=== PATIENT | male | born 1990 | race Caucasian/White ===

== ENCOUNTER 2018-04-05 21:44 | Emergency (ER) | payer OTHER ==
[2018-04-05] MEDS ORDERED: LET GEL TOPICAL 1 EA SYR TP ONE (22:24)
--- NOTE | 2018-04-05 22:28 | EDPHY ---
H & P Time Seen by Provider: 04/05/18 22:24 HPI/ROS: CHIEF COMPLAINT: Right hand pain HISTORY OF PRESENT ILLNESS: The patient is a 27-year-old [employer] here for right hand pain and skin lesions after he abraded his hands tackling somebody. Denies any numbness or loss of range of motion. He takes no blood thinners or other prescribed medications. There are no drugs or alcohol involved. REVIEW OF SYSTEMS: Constitutional: No fever, no chills. Eyes: No discharge. ENT: No sore throat. Cardiovascular: No chest pain, no palpitations. Respiratory: No cough, no shortness of breath. Gastrointestinal: No abdominal pain, no vomiting. Genitourinary: No hematuria. Musculoskeletal: No back pain. Skin: No rashes. + skin lesions Neurological: No headache. Smoking Status: Never smoked Physical Exam: General Appearance: Alert and no distress. Eyes: Pupils equal and round no injection. Respiratory: Chest is nontender, lungs are clear to auscultation. Cardiac: regular rate and rhythm. Gastrointestinal: Abdomen is soft and nontender, no masses, bowel sounds normal. Musculoskeletal: Full range of motion of the right hand without deformity. Multiple skin abrasions to the dorsum of the hand Extremities have full range of motion and are nontender. Skin: Multiple superficial abrasions to the dorsum of the right hand. No foreign bodies. Constitutional: Initial Vital Signs Temperature (C) 36.7 C 04/05/18 21:51 Heart Rate 97 04/05/18 21:51 Respiratory Rate 18 04/05/18 21:51 Blood Pressure 129/91 H 04/05/18 21:51 O2 Sat (%) 95 04/05/18 21:51 O2 Delivery Mode Room Air Allergies/Adverse Reactions: No Known Allergies Allergy (Unverified 07/21/16 20:29) Home Medications: Medication Instructions Recorded NK [No Known Home Meds] 07/21/16 Medical Decision Making - Diagnostics Imaging Results: Imaging Impressions Hand X-Ray 04/05/18 21:54 Impression: No acute osseous findings. ED Course/Re-evaluation: X-ray shows no acute fracture dislocation. Let was applied to the wounds and thoroughly irrigated explored. There were no retained foreign bodies. Patient was stressed with topical antibiotic ointment and nonstick dressing. Differential Diagnosis: Fracture, dislocation, neurovascular injury, foreign body - Data Points Medications Given: Discontinued Medications Tetracaine/Epinephrine/Lidocaine (Let Gel Topical) 1 ea TP EDNOW ONE Stop: 04/05/18 22:25 Last Admin: 04/05/18 22:30 Dose: 1 ea Departure - Departure Disposition: Home, Routine, Self-Care Clinical Impression: Hand abrasion Condition: Good Instructions: Abrasion (ED) Referrals: NONE *PRIMARY CARE P,. [Primary Care Provider] - As per Instructions
[2018-04-05 23:04] VITALS: BP 127/86
== END 2018-04-05 23:04 | disposition home or self-care (01) ==
DX: S60.511A Abrasion of right hand, initial encounter (principal); W51.XXXA Accidental striking against or bumped into by another person, initial encounter; Y99.1 Military activity

== ENCOUNTER 2018-09-14 22:15 | Emergency (ER) | payer OTHER ==
[2018-09-14 22:36] VITALS: BP 161/88
--- NOTE | 2018-09-14 22:52 | EDPHY ---
H & P Stated Complaint: Possible chemical exposure Time Seen by Provider: 09/14/18 22:22 HPI/ROS: CHIEF COMPLAINT: Chemical exposure HISTORY OF PRESENT ILLNESS: 28-year-old [employer] presents after a chemical exposure. He walked in to a suspected meth house, and smelled a strong chemical odor. He developed transient dizziness and a burning sensation in his throat. He walked out of the house and the symptoms resolved. He is currently asymptomatic. REVIEW OF SYSTEMS: complete 10 point ROS reviewed and is negative except for the noted elements in the HPI - Personal History Current Tetanus/Diphtheria Vaccine: Yes Current Tetanus Diphtheria and Acellular Pertussis (TDAP): Yes - Medical/Surgical History Hx Asthma: No Hx Chronic Respiratory Disease: No Hx Diabetes: No Hx Cardiac Disease: No Hx Renal Disease: No Hx Cirrhosis: No Hx Alcoholism: No Hx HIV/AIDS: No Hx Splenectomy or Spleen Trauma: No Other PMH: denies - Social History Smoking Status: Never smoked - Physical Exam Exam: General Appearance: Alert, pleasant Eyes: Pupils equal and round, no conjunctival pallor ENT, Mouth: Mucous membranes moist Neck: Normal inspection Respiratory: Lungs are clear to auscultation, no wheezing Cardiovascular: Regular rate and rhythm Gastrointestinal: Abdomen is soft and nontender Neurological: A&O, nonfocal, normal gait Skin: Warm and dry Extremities: Normal inspection Psychiatric: Mood and affect normal Constitutional: Initial Vital Signs Temperature (C) 36.8 C 09/14/18 22:33 Heart Rate 78 09/14/18 22:33 Respiratory Rate 18 09/14/18 22:33 Blood Pressure 161/88 H 09/14/18 22:33 O2 Sat (%) 94 09/14/18 22:33 O2 Delivery Mode Room Air Allergies/Adverse Reactions: No Known Allergies Allergy (Unverified 07/21/16 20:29) Home Medications: Medication Instructions Recorded NK [No Known Home Meds] 07/21/16 Medical Decision Making ED Course/Re-evaluation: This patient presents after a chemical exposure. He is currently asymptomatic. He underwent decontamination in the shower. Per PD on site, lacquer has been found, no toxic chemical. Will d/c home. Departure - Departure Disposition: Home, Routine, Self-Care Clinical Impression: Chemical exposure Condition: Good Instructions: Additional Information, Return to Work Instructions (ED) Additional Instructions: You are okay to return to work. Referrals: Rip Zhang MD [Medical Doctor] - As per Instructions
== END 2018-09-14 23:01 | disposition home or self-care (01) ==
LOC: EDUNIT#
DX: T65.6X4A Toxic effect of paints and dyes, not elsewhere classified, undetermined, initial encounter (principal)